=== PATIENT | female | born 1990 | race Native Hawaiian/Other Pacific Islander ===

== ENCOUNTER → 2020-12-30 | Outpatient (CLI) | payer OTHER ==
--- NOTE | 2020-12-30 16:05 | REP ---
INDICATION: PREG, ANATOMY. COMPARISON: None. TECHNIQUE: Transabdominal obstetric sonography. FINDINGS: Scanning through the gravid uterus demonstrates a viable single intrauterine gestation in variable lie. motion is observed and heart rate is recorded at 161 beats per minute. A right lateral and anterior placenta is seen, grade 0, without evidence of placenta previa. Closed cervical length is measured at 3.1 cm transabdominally. No extrauterine abnormality is observed. Amniotic fluid is subjectively normal. No anomaly is seen. The following anatomic structures are identified and felt to be sonographically unremarkable: cranium, choroid plexus, cavum, cerebellum and posterior fossa, lungs, right ventricular outflow tract views, diaphragm, left-sided stomach, abdominal wall cord insertion, three-vessel umbilical cord, kidneys and bladder, spine, and upper and lower extremities. nose and lips as well as four-chamber heart and left ventricular outflow tract views were less than optimally seen due to position. Biometry chart: BPD 6.0 cm, 24 weeks 2 days Head circumference 22.0 cm, 24 weeks 0 days Abdominal circumference 20.0 cm, 24 weeks 5 days Femur length 4.1 cm, 23 weeks 1 day Humeral length 3.8 cm, 23 weeks 2 days HC AC ratio normal 1.10 Cephalic index normal 0.76 Estimated weight 653 g, 1 lb 7 oz, 77th percentile for 23 weeks 2 days IMPRESSION: Viable single intrauterine gestation at 23 weeks 6 days by today's composite sonographic criteria. NICANOR by today's sonography April 22, 2021. No complication identified. nose and lips as well as four-chamber heart and left ventricular outflow tract views were less than optimally seen. <Electronically signed by Damien Valdez > 12/30/20 [id number]
== END ==
LOC: M RAD 14:58
PROVIDERS: ATTEND Nurse Practitioner Women's Health
DX: Z36.89 Encounter for other specified antenatal screening (principal); Z3A.23 23 weeks gestation of pregnancy

== ENCOUNTER 2021-03-20 21:13 | Outpatient (CLI) | payer OTHER ==
[~2021-03-20] VITALS: Ht 162.6 cm; Wt 76.5 kg
[2021-03-20 22:04] VITALS: BP 130/83
[2021-03-20] MEDS ORDERED: ACETAMINOPHEN 500 MG TAB PO ONE (22:15)
[2021-03-20 22:29] LABS: HEMATOCRIT 37.4 % (36.0-47.0); HEMOGLOBIN 11.9 g/dl (12.0-15.5); MEAN CORPUSCULAR HEMOGLOBIN 26.9 pg (27.0-33.0); MEAN CORPUSCULAR HGB CONC 31.8 g/dl (32.0-36.5); MEAN CORPUSCULAR VOLUME 84.6 fl (80.0-96.0); PLATELET COUNT, AUTOMATED 350 10^3/uL (150-450); RED BLOOD COUNT 4.42 10^6/uL (4.00-5.40); WHITE BLOOD COUNT 9.1 10^3/uL (4.0-10.0)
[2021-03-20 22:41] LABS: INR 0.96; PARTIAL THROMBOPLASTIN TIME 28.5 SECONDS (25.9-37.0); PROTHROMBIN TIME 13.2 SECONDS (12.7-14.5)
[2021-03-20 23:22] VITALS: BP 126/76
[2021-03-21 01:37] VITALS: BP 119/71
[2021-03-21] MEDS ORDERED: LR 1,000 ML IV SCH (01:40)
[2021-03-21] MEDS ORDERED: LR 500 ML IV ONE (01:40)
[2021-03-21 06:48] VITALS: BP 121/76
[2021-03-21 07:12] VITALS: BP 133/91
--- NOTE | 2021-03-21 07:16 | IPNPDOC ---
Text Note Date of Service The patient was seen on 03/21/21. NOTE Alexey Rutledge is a 31yo at about 35 weeks gestation presenting for fall on ice around 20Mar2021. She fell onto a sidewalk, landing on her tailbone. Denies abdominal trauma, vaginal bleeding, loss of fluid. Endorses positive movement. Endorses abdominal cramping. Her last labor, which was at term, was provoked by a similar fall and she is concerned about going into labor. On presentation she was alert and oriented, nonlabored breathing with an abdomen that was soft, nontender, and nondistended. Speculum exam with RN driving school instructor revealed a visually closed cervix, no bleeding, physiologic discharge. Cervical exam with RN driving school instructor was fingertip/long/high. A bedside ultrasound performed by me revealed no evidence of abruption. Her NST was reactive with contractions every 6 minutes; therefore labs were ordered (CBC within normal limits, PT & PTT within normal limits, fibrinogen elevated) which were within normal limits. Due to contractions occuring greater than every ten minutes extended monitoring was ordered. After several hours she continued to contract however no other clinical changes noted. I recommended to the patient about 24 hours of monitoring due to frequency of contractions as well as IV Lactated Ringers fluid therapy. Overnight her contractions have decreased in frequency to now one contraction every 15 minutes currently. The strip has been category I. Currently no evidence of labor or abruption. Care will be transferred to Dr. Dominique at 0730 Ed Patel DO. VS,Jessica, I+O VS, Jessica, I+O Laboratory Tests 03/20/21 22:22 Vital Signs Date Time Temp Pulse Resp B/P (MAP) Pulse Ox O2 Delivery O2 Flow Rate FiO2 03/21/21 06:48 97.2 96 16 121/76 (91) I&O- Last 24 Hours up to 6 AM 03/21/21 06:00 Intake Total 800 ml Balance 800 ml ED PATEL DO Mar 21, 2021 07:16
[2021-03-21 10:21] VITALS: BP 143/85
[2021-03-21 10:22] VITALS: BP 138/82
--- NOTE | 2021-03-21 10:24 | IPNPDOC ---
Obstetrical Progress Note Date of Service Mar 21, 2021 Subjective Pt resting comfortably, denies pain, bleeding, lof, and contractions. States reassuring FM. Objective Vital Signs Date Time Temp Pulse Resp B/P (MAP) Pulse Ox O2 Delivery O2 Flow Rate FiO2 03/21/21 07:28 97.8 20 03/21/21 07:12 93 133/91 (105) 98 Room Air Assessment Heart Rate (FHR): 140 Variability: Moderate Accelerations: Positive Decelerations: None Heart Rate Tracing: Category I Tocometer Contractions: Yes Frequency: other (occasional) Strength: resting tone palp/soft, patient denies CTX's (non tender to palpation) Assessment and Plan Age: 31 : 2 Term: 1 Pre-term: 0 Abortions: 0 Livin Weeks & Days 34+6 Status: Reassuring Group B Streptococcus: Unknown Additional Comments Pt discharged to home with PTL precautions, fall precautions, expressed understanding of reasons to return for care. Reviewed comfort measures for normal discomforts and musculoskeletal pain. Pt should keep scheduled 36 wk OB appt. denies additional questions. ALESSANDRA TRINIDAD CNM Mar 21, 2021 10:24
== END 2021-03-21 10:27 | disposition home or self-care (01) ==
LOC: M LDO 21:13
PROVIDERS: ATTEND Obstetrics & Gynecology
DX: O60.03 Preterm labor without delivery, third trimester (principal); O26.893 Other specified pregnancy related conditions, third trimester; R25.2 Cramp and spasm; W00.0XXA Fall on same level due to ice and snow, initial encounter; Y92.9 Unspecified place or not applicable; Y93.9 Activity, unspecified; Y99.9 Unspecified external cause status; Z3A.35 35 weeks gestation of pregnancy
CPT/HCPCS: 36415; 59025; 76815; 85027; 85384; 85610; 85730; G0463